=== PATIENT | male | born 1990 | race African-American/Black ===

== ENCOUNTER 2018-06-30 13:24 | Emergency (ER) | payer OTHER ==
[~2018-06-30] VITALS: Ht 170.2 cm; Wt 79.1 kg
[2018-06-30 13:24] VITALS: BP 178/89
[2018-06-30] MEDS ORDERED: SOMA350T PO (16:53)
[2018-06-30] MEDS ORDERED: IBUP-1022 PO (16:53)
== END 2018-06-30 17:00 | disposition home or self-care (01) ==
LOC: M ED 13:24
DX: S39.012A Strain of muscle, fascia and tendon of lower back, initial encounter (principal); X50.9XXA Other and unspecified overexertion or strenuous movements or postures, initial encounter; Y92.89 Other specified places as the place of occurrence of the external cause; Y93.9 Activity, unspecified; Y99.1 Military activity

== ENCOUNTER 2019-12-03 06:09 | Emergency (ER) | payer OTHER ==
[~2019-12-03] VITALS: Ht 172.7 cm; Wt 81.8 kg
[~2019-12-03 06:09] MED LIST: IBUP-1022 PO; SOMA350T PO
[2019-12-03] MEDS ORDERED: LIPI20TA PO (06:16)
[2019-12-03] MEDS ORDERED: CETI10CA2 PO (06:17)
[2019-12-03] MEDS ORDERED: PANTOPRAZOLE 40MG VIAL (C9113 PER 1) IV ONE (07:00)
[2019-12-03] MEDS ORDERED: NS 1,000 ML IV ONE (07:00)
[2019-12-03 07:51] LABS: BASO # 0.1 10^3/uL (0.0-0.2); BASO % 1.3 % (0.0-1.0); EOS # 1.4 10^3/uL (0.0-0.5); HEMATOCRIT 42.1 % (42.0-52.0); HEMOGLOBIN 14.3 g/dl (13.5-17.5); LYMPH # 1.4 10^3/uL (1.5-5.0); LYMPH % 26.7 % (24.0-44.0); MEAN CORPUSCULAR HEMOGLOBIN 28.7 pg (27.0-33.0); MEAN CORPUSCULAR VOLUME 84.4 fl (80.0-96.0); MONO # 0.4 10^3/uL (0.0-0.8); MONO % 6.5 % (0.0-5.0); NEUTROPHILS # 2.1 10^3/uL (1.5-8.5); NEUTROPHILS % 38.8 % (36.0-66.0); PLATELET COUNT, AUTOMATED 252 10^3/uL (150-450); RED BLOOD COUNT 4.99 10^6/uL (4.30-6.10); WHITE BLOOD COUNT 5.4 10^3/uL (4.0-10.0)
[2019-12-03 08:11] LABS: INR 1.02; PROTHROMBIN TIME 13.1 SECONDS (11.8-14.0)
[2019-12-03 08:12] LABS: PARTIAL THROMBOPLASTIN TIME 27.9 SECONDS (25.0-38.4)
[2019-12-03 08:28] LABS: EOS % 26.7 % (0.0-3.0)
[2019-12-03] MEDS ORDERED: ANUS2.5C2 TOP (08:50)
[2019-12-03] MEDS ORDERED: PROT1TAB2 PO (08:50)
[2019-12-03 09:09] VITALS: BP 134/89
== END 2019-12-03 09:55 | disposition home or self-care (01) ==
LOC: M ED 06:09
DX: K64.4 Residual hemorrhoidal skin tags (principal); K92.1 Melena; R10.13 Epigastric pain; E78.5 Hyperlipidemia, unspecified; J30.1 Allergic rhinitis due to pollen; Z79.899 Other long term (current) drug therapy
CPT/HCPCS: 36415; 80047; 85025; 85610; 85730; 86850; 86900; 86901; 96374; 99284; C9113